=== PATIENT | male | born 1950 | race Caucasian/White ===

== ENCOUNTER 2018-02-18 22:47 | Outpatient (REF) | payer BC, MEDICARE, SELFPAY ==
[2018-02-18 23:20] LABS: ALT 80 U/L (12-78); AST 43 U/L (15-37); Albumin 3.4 g/dL (3.4-5.0); Alkaline Phosphatase 175 U/L (46-116); BUN 9 mg/dL (7-18); Bilirubin, Total 1.4 mg/dL (0.2-1.0); CREATININE 1.02 mg/dL (0.70-1.30); Calcium 8.7 mg/dL (8.5-10.1); Chloride 92 mmol/L (98-107); Glucose 100 mg/dL (70-100); Potassium 4.7 mmol/L (3.5-5.1); Sodium 128 mmol/L (136-145)
== END 2018-02-18 23:07 ==
LOC: NCHCN 22:47
PROVIDERS: Visit Provider Nurse Practitioner Family
DX: E87.1 Hypo-osmolality and hyponatremia (principal); I10 Essential (primary) hypertension; F10.20 Alcohol dependence, uncomplicated; R94.5 Abnormal results of liver function studies
CPT/HCPCS: 80053

== ENCOUNTER 2018-03-05 21:16 | Outpatient (REF) | payer BC, MEDICARE, SELFPAY ==
[2018-03-05 22:13] LABS: ALT 32 U/L (12-78); AST 31 U/L (15-37); Albumin 3.8 g/dL (3.4-5.0); Alkaline Phosphatase 99 U/L (46-116); Anion Gap 7.4 mmol/L (3-11); BUN 9 mg/dL (7-18); Bilirubin, Total 0.8 mg/dL (0.2-1.0); CO2 27.6 mmol/L (21.0-32.0); CREATININE 1.25 mg/dL (0.70-1.30); Calcium 8.8 mg/dL (8.5-10.1); Chloride 96 mmol/L (98-107); Estimated GFR 57.61 (mL/min/1.73m2); Glucose 93 mg/dL (70-100); Potassium 4.6 mmol/L (3.5-5.1); Sodium 131 mmol/L (136-145); Total Protein 7.4 g/dL (6.4-8.2)
== END 2018-03-05 21:36 ==
LOC: NCHCN 21:16
PROVIDERS: Visit Provider Nurse Practitioner Family
DX: I10 Essential (primary) hypertension (principal); F10.20 Alcohol dependence, uncomplicated
CPT/HCPCS: 80053

== ENCOUNTER 2019-01-07 17:20 | Outpatient (REF) | payer BC, MEDICARE, SELFPAY ==
[2019-01-07 21:22] LABS: HCT 37.7 % (40.0-50.0); HGB 13.2 g/dL (13.5-17.5); Mean Corpuscular Hemoglobin 31.1 pg (27.0-33.0); Mean Corpuscular Volume 88.7 fL (80-95); Mean Platelet Volume 10.6 fL (8.0-11.0); Platelet Count 132 x1000/uL (130-400); RBC 4.25 m/cumm (4.50-6.00); RBC Distribution Width 13.4 % (11.8-14.1); White Blood Cell Count 5.71 k/cumm (4.4-10.8)
[2019-01-07 21:36] LABS: INR 1.1 (0.9-1.1); Prothrombin Time 11.5 sec (9.3-11.0)
[2019-01-07 22:06] LABS: Hemoglobin A1C 5.6 % (4.5-6.2)
[2019-01-07 22:24] LABS: ALT 40 U/L (16-63); AST 35 U/L (15-37); Albumin 3.9 g/dL (3.4-5.0); Alkaline Phosphatase 79 U/L (46-116); Anion Gap 8.9 mmol/L (3-11); BUN 9 mg/dL (7-18); Bilirubin, Total 0.6 mg/dL (0.2-1.0); CO2 26.1 mmol/L (21.0-32.0); CREATININE 1.01 mg/dL (0.70-1.30); Calcium 8.5 mg/dL (8.5-10.1); Calculated LDL 68 mg/dL; Chloride 88 mmol/L (98-107); Cholesterol 156 mg/dL (<200); Glucose 99 mg/dL (74-106); HDL Cholesterol 72 mg/dL (40-60); Magnesium 1.9 mg/dL (1.8-2.4); Potassium 4.6 mmol/L (3.5-5.1); Total Protein 7.1 g/dL (6.4-8.2); Triglyceride 80 mg/dL (<150); Vitamin B12 493 pg/mL (193-986)
[2019-01-07 22:56] LABS: Sodium 123 mmol/L (136-145)
== END 2019-01-07 17:40 ==
LOC: NCHCN 17:20
PROVIDERS: Visit Provider Nurse Practitioner Family
DX: R73.9 Hyperglycemia, unspecified (principal); E87.1 Hypo-osmolality and hyponatremia; I10 Essential (primary) hypertension; R94.5 Abnormal results of liver function studies; F10.20 Alcohol dependence, uncomplicated; Z87.19 Personal history of other diseases of the digestive system
CPT/HCPCS: 80053; 80061; 85027; 82607; 83036; 83735; 85610

== ENCOUNTER 2019-01-13 11:15 | Outpatient (REF) | payer BC, MEDICARE, SELFPAY ==
[2019-01-13 21:26] LABS: Anion Gap 6.6 mmol/L (3-11); BUN 10 mg/dL (7-18); CO2 28.4 mmol/L (21.0-32.0); CREATININE 1.04 mg/dL (0.70-1.30); Calcium 8.6 mg/dL (8.5-10.1); Chloride 93 mmol/L (98-107); Glucose 110 mg/dL (74-106); Potassium 4.7 mmol/L (3.5-5.1); Sodium 128 mmol/L (136-145)
[2019-01-13 21:35] LABS: Sodium, Urine 34 mmol/L
[2019-01-14 19:45] LABS: Osmolality, Urine 278 mOsm/kg (150-1,150)
== END 2019-01-13 11:35 ==
LOC: NCHCN 11:15
PROVIDERS: Visit Provider Nurse Practitioner Family
DX: E87.1 Hypo-osmolality and hyponatremia (principal)
CPT/HCPCS: 80048; 83935; 84300

== ENCOUNTER 2019-11-19 14:09 | Outpatient (REF) | payer OTHER, SELFPAY ==
[2019-11-23 15:25] LABS: Patient Race White; SARS-CoV-2 RNA Undetected (Undetected); SARS-CoV-2 Specimen Source Nasal
== END 2019-11-19 14:29 ==
LOC: NCHCN 14:09
PROVIDERS: Visit Provider Nurse Practitioner Family
DX: Z20.828 Contact with and (suspected) exposure to other viral communicable diseases (principal)
CPT/HCPCS: U0003

== ENCOUNTER 2019-11-19 17:19 | Outpatient (REF) | payer OTHER, SELFPAY ==
[2019-11-19 23:18] LABS: HCT 42.1 % (40.0-50.0); HGB 14.8 g/dL (13.5-17.5); MCH 33.6 pg (27.0-33.0); MCHC 35.2 % (32.0-36.0); MCV 95.5 fL (80-95); MPV 11.3 fL (8.0-11.0); Platelet Count 215 10^3/uL (130-400); RBC 4.41 10^6/uL (4.36-5.78); RDW 12.6 % (11.8-14.1); RDW-SD 44.9 fL; WBC 5.53 10^3/uL (4.4-10.8)
[2019-11-19 23:23] LABS: Prothrombin Time 10.5 sec (9.3-11.0)
[2019-11-19 23:27] LABS: ALT 38 U/L (16-63); AST 31 U/L (15-37); Albumin 3.8 g/dL (3.4-5.0); Alkaline Phosphatase 90 U/L (46-116); Anion Gap 8.5 mmol/L (3-11); BUN 11 mg/dL (7-18); Bilirubin, Total 0.6 mg/dL (0.2-1.0); CO2 28.5 mmol/L (21.0-32.0); CREATININE 1.12 mg/dL (0.70-1.30); Calcium 8.7 mg/dL (8.5-10.1); Chloride 95 mmol/L (98-107); Glucose 85 mg/dL (74-106); Potassium 4.1 mmol/L (3.5-5.1); Sodium 132 mmol/L (136-145); Total Protein 7.6 g/dL (6.4-8.2)
[2019-11-19 23:33] LABS: Hemoglobin A1C 5.5 % (<5.7)
== END 2019-11-19 17:39 ==
LOC: NCHCN 17:19
PROVIDERS: Visit Provider Nurse Practitioner Family
DX: R73.9 Hyperglycemia, unspecified (principal); I10 Essential (primary) hypertension; F10.20 Alcohol dependence, uncomplicated; E87.1 Hypo-osmolality and hyponatremia; Z87.898 Personal history of other specified conditions
CPT/HCPCS: 80053; 85027; 83036; 85610

== ENCOUNTER 2020-09-13 15:36 | Outpatient (REF) | payer OTHER, SELFPAY ==
[2020-09-13 20:48] LABS: INR 1.1 (0.9-1.1); Prothrombin Time 10.7 sec (9.3-11.0)
[2020-09-13 20:58] LABS: HCT 39.9 % (40.0-50.0); HGB 13.5 g/dL (13.5-17.5); MCH 30.4 pg (27.0-33.0); MCHC 33.8 % (32.0-36.0); MCV 89.9 fL (80-95); RBC 4.44 10^6/uL (4.36-5.78); RDW 13.8 % (11.8-14.1); RDW-SD 45.6 fL; WBC 6.03 10^3/uL (4.4-10.8)
[2020-09-13 21:14] LABS: ALT 71 U/L (16-63); AST 76 U/L (15-37); Albumin 3.9 g/dL (3.4-5.0); Alkaline Phosphatase 211 U/L (46-116); Anion Gap 8.9 mmol/L (3-11); BUN 7 mg/dL (7-18); Bilirubin, Total 0.6 mg/dL (0.2-1.0); CO2 27.1 mmol/L (21.0-32.0); Calcium 8.5 mg/dL (8.5-10.1); Chloride 90 mmol/L (98-107); Glucose 110 mg/dL (74-106); Potassium 4.4 mmol/L (3.5-5.1); Sodium 126 mmol/L (136-145); Total Protein 7.6 g/dL (6.4-8.2)
== END 2020-09-13 15:37 | disposition home or self-care (01) ==
LOC: NCHCN 15:36
PROVIDERS: Visit Provider Nurse Practitioner Family
DX: I10 Essential (primary) hypertension (principal); F10.20 Alcohol dependence, uncomplicated; F41.9 Anxiety disorder, unspecified; F40.243 Fear of flying; E87.1 Hypo-osmolality and hyponatremia; R94.5 Abnormal results of liver function studies
CPT/HCPCS: 80053; 85027; 85610

== ENCOUNTER 2020-09-27 14:35 | Outpatient (REF) | payer OTHER, SELFPAY ==
[2020-09-27 21:16] LABS: HCT 39.1 % (40.0-50.0); HGB 13.2 g/dL (13.5-17.5); MCH 31.1 pg (27.0-33.0); MCHC 33.8 % (32.0-36.0); MPV 12.3 fL (8.0-11.0); Platelet Count 123 10^3/uL (130-400); RBC 4.25 10^6/uL (4.36-5.78); RDW 14.6 % (11.8-14.1); RDW-SD 49.1 fL; WBC 5.37 10^3/uL (4.4-10.8)
== END 2020-09-27 14:36 | disposition home or self-care (01) ==
LOC: NCHCN 14:35
PROVIDERS: Visit Provider Nurse Practitioner Family
DX: R79.89 Other specified abnormal findings of blood chemistry (principal); Z87.898 Personal history of other specified conditions
CPT/HCPCS: 85027

== ENCOUNTER 2020-10-15 16:05 | Outpatient (REF) | payer OTHER, SELFPAY ==
[2020-10-15 20:57] LABS: ALT 61 U/L (16-63); AST 28 U/L (15-37); Albumin 3.7 g/dL (3.4-5.0); Alkaline Phosphatase 154 U/L (46-116); Bilirubin, Direct 0.1 mg/dL (0.0-0.2); Bilirubin, Total 0.5 mg/dL (0.2-1.0)
== END 2020-10-15 16:06 | disposition home or self-care (01) ==
LOC: NCHCN 16:05
PROVIDERS: Visit Provider Nurse Practitioner Family
DX: Z87.898 Personal history of other specified conditions (principal)
CPT/HCPCS: 80076

== ENCOUNTER 2020-11-11 12:00 | Outpatient (REF) | payer OTHER, SELFPAY ==
[2020-11-11 15:34] LABS: Prothrombin Time 10.4 sec (9.3-11.0)
[2020-11-11 16:01] LABS: HGB 14.2 g/dL (13.5-17.5); MCH 30.7 pg (27.0-33.0); MCV 93.1 fL (80-95); MPV 10.8 fL (8.0-11.0); Platelet Count 186 10^3/uL (130-400); RBC 4.62 10^6/uL (4.36-5.78); RDW 13.8 % (11.8-14.1); RDW-SD 46.8 fL
[2020-11-11 16:39] LABS: Iron 153 ug/dL (65-175); Total Iron Binding Capacity 318 ug/dL (250-450); Transferrin Sat 48 % (20-55)
[2020-11-11 16:47] LABS: ALT 142 U/L (16-63); AST 44 U/L (15-37); Albumin 3.9 g/dL (3.4-5.0); Alkaline Phosphatase 213 U/L (46-116); Anion Gap 6.1 mmol/L (3-11); BUN 9 mg/dL (7-18); Bilirubin, Total 0.6 mg/dL (0.2-1.0); CO2 28.9 mmol/L (21.0-32.0); CREATININE 1.1 mg/dL (0.70-1.30); Chloride 96 mmol/L (98-107); Folate 3.5 ng/mL (8.6-20.0); Glucose 90 mg/dL (74-106); Potassium 3.8 mmol/L (3.5-5.1); Sodium 131 mmol/L (136-145); Total Protein 7.6 g/dL (6.4-8.2); Vitamin B12 823 pg/mL (193-986)
== END 2020-11-11 12:01 | disposition home or self-care (01) ==
LOC: NCHCN 12:00
PROVIDERS: Visit Provider Nurse Practitioner Family
DX: K70.30 Alcoholic cirrhosis of liver without ascites (principal); F10.20 Alcohol dependence, uncomplicated; Z87.898 Personal history of other specified conditions
CPT/HCPCS: 80053; 85027; 82607; 82746; 83540; 83550; 85610

== ENCOUNTER 2021-07-26 15:39 | Outpatient (REF) | payer MEDICARE, SELFPAY ==
[2021-07-26 21:07] LABS: ALT 27 U/L (16-63); AST 23 U/L (15-37); Albumin 3.6 g/dL (3.4-5.0); Alkaline Phosphatase 75 U/L (46-116); Anion Gap 4.1 mmol/L (3-11); BUN 10 mg/dL (7-18); Bilirubin, Total 0.7 mg/dL (0.2-1.0); CO2 27.9 mmol/L (21.0-32.0); CREATININE 1.2 mg/dL (0.70-1.30); Calcium 8.5 mg/dL (8.5-10.1); Chloride 94 mmol/L (98-107); Estimated GFR 59.68 (mL/min/1.73m2); Glucose 100 mg/dL (74-106); INR 1.1 (0.9-1.1); Potassium 4.7 mmol/L (3.5-5.1); Prothrombin Time 10.7 sec (9.3-11.0); Sodium 126 mmol/L (136-145); Total Protein 7.1 g/dL (6.4-8.2)
[2021-07-26 21:11] LABS: HGB 13.4 g/dL (13.5-17.5); MCH 29.8 pg (27.0-33.0); MCHC 34.4 % (32.0-36.0); MCV 87 fL (80-95); RBC 4.49 10^6/uL (4.36-5.78); RDW 14.7 % (11.8-14.1); RDW-SD 47.1 fL
[2021-07-26 21:39] LABS: Platelet Count 131 10^3/uL (130-400)
== END 2021-07-26 15:40 | disposition home or self-care (01) ==
LOC: NCHCN 15:39
PROVIDERS: Visit Provider Nurse Practitioner Family
DX: K20.90 Esophagitis, unspecified without bleeding (principal); K70.2 Alcoholic fibrosis and sclerosis of liver; R94.5 Abnormal results of liver function studies
CPT/HCPCS: 80053; 85027; 85610

== ENCOUNTER 2021-08-24 16:37 | Outpatient (REF) | payer MEDICARE, SELFPAY ==
[2021-08-24 15:57] LABS: Anion Gap 6.6 mmol/L (3-11); BUN 10 mg/dL (7-18); CO2 25.4 mmol/L (21.0-32.0); CREATININE 1.1 mg/dL (0.70-1.30); Calcium 8.5 mg/dL (8.5-10.1); Chloride 89 mmol/L (98-107); Glucose 95 mg/dL (74-106); Potassium 4.8 mmol/L (3.5-5.1); TSH 1.93 uIU/mL (0.36-3.74)
[2021-08-24 16:11] LABS: Sodium 121 mmol/L (136-145)
== END 2021-08-24 16:38 | disposition home or self-care (01) ==
LOC: NCHCN 16:37
PROVIDERS: Visit Provider Nurse Practitioner Family
DX: I10 Essential (primary) hypertension (principal); K70.2 Alcoholic fibrosis and sclerosis of liver
CPT/HCPCS: 80048; 82533; 84443

== ENCOUNTER 2022-02-27 21:10 | Outpatient (REF) | payer MEDICARE, SELFPAY ==
[2022-02-27 21:29] LABS: BUN 11 mg/dL (7-18); CREATININE 1.2 mg/dL (0.70-1.30); Calcium 8.9 mg/dL (8.5-10.1); Chloride 95 mmol/L (98-107); Estimated GFR 64.65 (mL/min/1.73m2); Glucose 109 mg/dL (74-106); Potassium 4.7 mmol/L (3.5-5.1); Sodium 129 mmol/L (136-145)
[2022-02-28 20:00] LABS: PSA, Screening 0.5 ng/mL (<=6.5)
== END 2022-02-27 21:11 | disposition home or self-care (01) ==
LOC: NCHCN 21:10
PROVIDERS: Visit Provider Nurse Practitioner Family
DX: N40.0 Benign prostatic hyperplasia without lower urinary tract symptoms (principal); I10 Essential (primary) hypertension; E87.1 Hypo-osmolality and hyponatremia; F10.20 Alcohol dependence, uncomplicated; Z12.5 Encounter for screening for malignant neoplasm of prostate
CPT/HCPCS: 80048; 84153

== ENCOUNTER 2022-07-28 13:13 | Outpatient (REF) | payer MEDICARE, SELFPAY ==
[2022-07-28 21:09] LABS: Abs Immature Grans 0.03 10^3/uL (0.0-0.06); Absolute Basophil Count 0.02 10^3/uL (0.0-0.2); Absolute Eosinophil Count 0.12 10^3/uL (0.0-0.7); Absolute Lymphocyte Count 0.78 10^3/uL (1.2-3.4); Absolute Monocyte Count 0.75 10^3/uL (0.1-0.8); Absolute Neutrophil Count 4.08 10^3/uL (1.2-6.7); Basophils % 0.3; Eosinophils % 2.1; HCT 34.7 % (40.0-50.0); Immature Grans % 0.5; Lymphocytes % 13.5; MCH 30.3 pg (27.0-33.0); MCHC 34.6 % (32.0-36.0); MCV 88 fL (80-95); MPV 12.2 fL (8.0-11.0); Neutrophils % 70.6; RBC 3.96 10^6/uL (4.36-5.78); RDW 14.9 % (11.8-14.1); WBC 5.78 10^3/uL (4.4-10.8)
[2022-07-28 21:15] LABS: Bilirubin Negative (Negative); Blood Negative (Negative); Clarity Clear (Clear); Glucose Negative (Negative); Ketones Negative (Negative); Leukocyte Esterase Negative (Negative); Nitrite Negative (Negative); Specific Gravity 1.015 (1.005-1.025); Urobilinogen 0.2 mg/dL (Up to 0.2)
[2022-07-28 21:24] LABS: RBC 0-2 HPF (0-2); WBC 0-2 HPF (0-5)
[2022-07-28 21:25] LABS: Bacteria Negative HPF (Negative); C & S Indicated? No; Casts Negative LPF (Negative); Crystals Negative HPF (Negative); Epithelial Cells Rare HPF (Negative); Mucus Trace (Negative)
[2022-07-28 21:26] LABS: ALT 66 U/L (16-63); AST 50 U/L (15-37); Albumin 3.3 g/dL (3.4-5.0); Alkaline Phosphatase 142 U/L (46-116); Anion Gap 6.3 mmol/L (3-11); BUN 9 mg/dL (7-18); Bilirubin, Total 1.2 mg/dL (0.2-1.0); CO2 26.7 mmol/L (21.0-32.0); CREATININE 1.1 mg/dL (0.70-1.30); Calcium 8.6 mg/dL (8.5-10.1); Chloride 92 mmol/L (98-107); Estimated GFR 71.32 (mL/min/1.73m2); Glucose 96 mg/dL (74-106); Potassium 3.9 mmol/L (3.5-5.1); Sodium 125 mmol/L (136-145); Total Protein 7.4 g/dL (6.4-8.2)
[2022-07-28 21:27] LABS: Lipase > 375 U/L (16-77)
[2022-07-28 21:43] LABS: Platelet Count 91 10^3/uL (130-400)
== END 2022-07-28 13:14 | disposition home or self-care (01) ==
LOC: NCHCN 13:13
PROVIDERS: Visit Provider Family Medicine
DX: E87.1 Hypo-osmolality and hyponatremia (principal); K70.2 Alcoholic fibrosis and sclerosis of liver; R10.9 Unspecified abdominal pain
CPT/HCPCS: 80053; 83690; 81003; 81015; 85025

== ENCOUNTER 2022-08-28 17:11 | Outpatient (REF) | payer MEDICARE, SELFPAY ==
[2022-08-28 21:31] LABS: HCT 38.6 % (40.0-50.0); HGB 13.3 g/dL (13.5-17.5); MCH 29.9 pg (27.0-33.0); MCHC 34.5 % (32.0-36.0); MCV 87 fL (80-95); RBC 4.45 10^6/uL (4.36-5.78); RDW 13.6 % (11.8-14.1); RDW-SD 43.3 fL; WBC 4.63 10^3/uL (4.4-10.8)
[2022-08-28 21:42] LABS: Prothrombin Time 10.5 sec (9.3-11.0)
[2022-08-28 21:59] LABS: Platelet Count 89 10^3/uL (130-400)
[2022-08-28 22:05] LABS: ALT 31 U/L (16-63); AST 30 U/L (15-37); Albumin 3.6 g/dL (3.4-5.0); Alkaline Phosphatase 99 U/L (46-116); BUN 13 mg/dL (7-18); Bilirubin, Total 0.8 mg/dL (0.2-1.0); CO2 27.4 mmol/L (21.0-32.0); CREATININE 1.2 mg/dL (0.70-1.30); Calcium 8.6 mg/dL (8.5-10.1); Chloride 92 mmol/L (98-107); Estimated GFR 64.25 (mL/min/1.73m2); Glucose 82 mg/dL (74-106); Potassium 4.6 mmol/L (3.5-5.1); Total Protein 7.3 g/dL (6.4-8.2)
[2022-08-28 22:09] LABS: Anion Gap 9.6 mmol/L (3-11); Sodium 129 mmol/L (136-145)
== END 2022-08-28 17:12 | disposition home or self-care (01) ==
LOC: NCHCN 17:11
PROVIDERS: Visit Provider Nurse Practitioner Family
DX: K70.2 Alcoholic fibrosis and sclerosis of liver (principal)
CPT/HCPCS: 80053; 85027; 85610

== ENCOUNTER 2023-01-15 13:12 | Outpatient (REF) | payer MEDICARE, SELFPAY ==
[2023-01-15 14:36] LABS: Abs Immature Grans 0.02 10^3/uL (0.0-0.06); Absolute Basophil Count 0.03 10^3/uL (0.0-0.2); Absolute Eosinophil Count 0.23 10^3/uL (0.0-0.7); Absolute Lymphocyte Count 0.67 10^3/uL (1.2-3.4); Absolute Monocyte Count 0.81 10^3/uL (0.1-0.8); Absolute Neutrophil Count 3.12 10^3/uL (1.2-6.7); Basophils % 0.6; Eosinophils % 4.7; HCT 35.3 % (40.0-50.0); HGB 12.3 g/dL (13.5-17.5); Immature Grans % 0.4; Lymphocytes % 13.7; MCH 29.6 pg (27.0-33.0); MCHC 34.8 % (32.0-36.0); MCV 85 fL (80-95); Monocytes % 16.6; RBC 4.16 10^6/uL (4.36-5.78); RDW 17.3 % (11.8-14.1); RDW-SD 53.7 fL; WBC 4.88 10^3/uL (4.4-10.8)
[2023-01-15 14:47] LABS: Diff Comment PLT Morph Reviewed; RBC Morphology Normal
[2023-01-15 14:48] LABS: ALT 212 U/L (16-63); AST 137 U/L (15-37); Alkaline Phosphatase 270 U/L (46-116); Anion Gap 6.6 mmol/L (3-11); BUN 12 mg/dL (7-18); Bilirubin, Total 2.9 mg/dL (0.2-1.0); CO2 26.4 mmol/L (21.0-32.0); Calcium 8.7 mg/dL (8.5-10.1); Calculated LDL 88 mg/dL (<100); Chloride 94 mmol/L (98-107); Cholesterol 169 mg/dL (<200); Estimated GFR 79.97 (mL/min/1.73m2); Glucose 100 mg/dL (74-106); HDL Cholesterol 70 mg/dL (40-60); Lipase 57 U/L (16-77); Sodium 127 mmol/L (136-145); Total Protein 6.8 g/dL (6.4-8.2); Triglyceride 56 mg/dL (<150)
== END 2023-01-15 13:13 | disposition home or self-care (01) ==
LOC: NCHCN 13:12
PROVIDERS: PCP Nurse Practitioner Family; Visit Provider Nurse Practitioner Family
DX: K70.2 Alcoholic fibrosis and sclerosis of liver (principal); R10.9 Unspecified abdominal pain; I10 Essential (primary) hypertension
CPT/HCPCS: 80053; 80061; 83690; 85025

== ENCOUNTER 2023-07-23 13:47 | Outpatient (REF) | payer MEDICARE, SELFPAY ==
[2023-07-23 17:01] LABS: Abs Immature Grans 0.01 10^3/uL (0.0-0.06); Absolute Basophil Count 0.06 10^3/uL (0.0-0.2); Absolute Eosinophil Count 0.44 10^3/uL (0.0-0.7); Absolute Lymphocyte Count 1.21 10^3/uL (1.2-3.4); Absolute Monocyte Count 0.71 10^3/uL (0.1-0.8); Basophils % 1.3 %; Eosinophils % 9.7 %; HGB 11.9 g/dL (13.5-17.5); Immature Grans % 0.2 %; Lymphocytes % 26.7 %; MCH 28.5 pg (27.0-33.0); MCHC 33.1 % (32.0-36.0); MCV 86 fL (80-95); Monocytes % 15.7 %; Neutrophils % 46.4 %; RBC 4.18 10^6/uL (4.36-5.78); RDW 14.6 % (11.8-14.1); RDW-SD 46.8 fL; WBC 4.53 10^3/uL (4.4-10.8)
[2023-07-23 17:07] LABS: Iron 72 ug/dL (65-175); Total Iron Binding Capacity 363 ug/dL (250-450); Transferrin Sat 20 % (20-55)
[2023-07-23 17:35] LABS: ALT 28 U/L (16-63); AST 33 U/L (15-37); Albumin 3.5 g/dL (3.4-5.0); Alkaline Phosphatase 77 U/L (46-116); Anion Gap 7.1 mmol/L (3-11); BUN 13 mg/dL (7-18); Bilirubin, Total 0.8 mg/dL (0.2-1.0); CO2 27.9 mmol/L (21.0-32.0); CREATININE 1.2 mg/dL (0.70-1.30); Calcium 8.5 mg/dL (8.5-10.1); Chloride 96 mmol/L (98-107); Estimated GFR 63.85 (mL/min/1.73m2); Ferritin 60 ng/mL (26-388); Glucose 93 mg/dL (74-106); Potassium 4.2 mmol/L (3.5-5.1); Sodium 131 mmol/L (136-145); Total Protein 7.1 g/dL (6.4-8.2); Vitamin B12 1935 pg/mL (193-986)
[2023-07-23 17:53] LABS: NT-proBNP 844 pg/mL (<300)
== END 2023-07-23 13:48 | disposition home or self-care (01) ==
LOC: NCHCN 13:47
PROVIDERS: PCP Nurse Practitioner Family; Visit Provider Internal Medicine
DX: D64.9 Anemia, unspecified (principal); R06.09 Other forms of dyspnea; K70.2 Alcoholic fibrosis and sclerosis of liver; R68.89 Other general symptoms and signs
CPT/HCPCS: 80053; 82607; 82728; 83540; 83550; 83880; 85025

== ENCOUNTER 2024-01-03 12:28 | Outpatient (REF) | payer MEDICARE, SELFPAY ==
[2024-01-03 21:26] LABS: HCT 38.3 % (40.0-50.0); MCH 30.7 pg (27.0-33.0); MCHC 33.9 % (32.0-36.0); MCV 90 fL (80-95); RBC 4.24 10^6/uL (4.36-5.78); RDW 14.1 % (11.8-14.1); RDW-SD 46.5 fL; WBC 4.67 10^3/uL (4.4-10.8)
[2024-01-03 21:53] LABS: ALT 36 U/L (16-63); AST 39 U/L (15-37); Albumin 3.8 g/dL (3.4-5.0); Alkaline Phosphatase 81 U/L (46-116); Anion Gap 6.6 mmol/L (3-11); BUN 11 mg/dL (7-18); Bilirubin, Total 0.89 mg/dL (0.2-1.0); CO2 27.4 mmol/L (21.0-32.0); CREATININE 1.1 mg/dL (0.70-1.30); Calcium 8.6 mg/dL (8.5-10.1); Chloride 93 mmol/L (98-107); Estimated GFR 70.88 (mL/min/1.73m2); Glucose 90 mg/dL (74-106); Potassium 4.7 mmol/L (3.5-5.1); Sodium 127 mmol/L (136-145); Total Protein 7.4 g/dL (6.4-8.2)
[2024-01-03 23:06] LABS: Vitamin B12 530 pg/mL (193-986)
[2024-01-04 18:09] LABS: PSA, Diagnostic 0.6 ng/mL (<=6.5)
== END 2024-01-03 12:29 | disposition home or self-care (01) ==
LOC: NCHCN 12:28
PROVIDERS: PCP Nurse Practitioner Family; Visit Provider Nurse Practitioner Family
DX: D64.9 Anemia, unspecified (principal); N40.1 Benign prostatic hyperplasia with lower urinary tract symptoms
CPT/HCPCS: 80053; 85027; 82607; 84153

== ENCOUNTER 2024-01-14 18:43 | Outpatient (REF) | payer MEDICARE, SELFPAY ==
[2024-01-14 22:11] LABS: Iron 178 ug/dL (65-175); Total Iron Binding Capacity 352 ug/dL (250-450); Transferrin Sat 51 % (20-55)
[2024-01-14 22:26] LABS: Anion Gap 5.9 mmol/L (3-11); BUN 14 mg/dL (7-18); CO2 27.1 mmol/L (21.0-32.0); CREATININE 1.4 mg/dL (0.70-1.30); Calcium 8.6 mg/dL (8.5-10.1); Chloride 90 mmol/L (98-107); Estimated GFR 53.07 (mL/min/1.73m2); Ferritin 70 ng/mL (26-388); Folate 3.7 ng/mL (8.6-20.0); Glucose 90 mg/dL (74-106)
[2024-01-14 22:38] LABS: Sodium 123 mmol/L (136-145)
== END 2024-01-14 18:44 | disposition home or self-care (01) ==
LOC: NCHCN 18:43
PROVIDERS: PCP Nurse Practitioner Family; Visit Provider Nurse Practitioner Family
DX: D64.9 Anemia, unspecified (principal); I10 Essential (primary) hypertension
CPT/HCPCS: 80048; 82728; 82746; 83540; 83550

== ENCOUNTER 2024-02-21 09:40 | Outpatient (REF) | payer MEDICARE, SELFPAY ==
[2024-02-21 15:59] LABS: Anion Gap 3.8 mmol/L (3-11); BUN 13 mg/dL (7-18); CO2 30.2 mmol/L (21.0-32.0); CREATININE 1.2 mg/dL (0.70-1.30); Calcium 8.7 mg/dL (8.5-10.1); Chloride 99 mmol/L (98-107); Estimated GFR 63.85 (mL/min/1.73m2); Glucose 103 mg/dL (74-106); Potassium 4.2 mmol/L (3.5-5.1); Sodium 133 mmol/L (136-145)
== END 2024-02-21 09:41 | disposition home or self-care (01) ==
LOC: NCHCN 09:40
PROVIDERS: PCP Nurse Practitioner Family; Visit Provider Nurse Practitioner Family
DX: E87.1 Hypo-osmolality and hyponatremia (principal)
CPT/HCPCS: 80048

== ENCOUNTER 2024-02-28 13:14 | Outpatient (REF) | payer MEDICARE, SELFPAY ==
[2024-02-28 14:22] LABS: Anion Gap 4.9 mmol/L (3-11); BUN 11 mg/dL (7-18); CO2 29.1 mmol/L (21.0-32.0); Calcium 8.9 mg/dL (8.5-10.1); Chloride 95 mmol/L (98-107); Estimated GFR 79.47 (mL/min/1.73m2); Glucose 92 mg/dL (74-106); Sodium 129 mmol/L (136-145)
== END 2024-02-28 13:15 | disposition home or self-care (01) ==
LOC: NCHCN 13:14
PROVIDERS: PCP Nurse Practitioner Family; Visit Provider Nurse Practitioner Family
DX: I10 Essential (primary) hypertension (principal)
CPT/HCPCS: 80048

== ENCOUNTER 2024-03-19 13:14 | Outpatient (REF) | payer MEDICARE, SELFPAY ==
[2024-03-19 14:07] LABS: HCT 38.1 % (40.0-50.0); HGB 12.7 g/dL (13.5-17.5); MCHC 33.3 % (32.0-36.0); MCV 96 fL (80-95); RBC 3.97 10^6/uL (4.36-5.78); RDW 13.9 % (11.8-14.1); RDW-SD 49.3 fL; WBC 4.67 10^3/uL (4.4-10.8)
[2024-03-19 14:26] LABS: Anion Gap 4.8 mmol/L (3-11); BUN 16 mg/dL (7-18); CO2 30.2 mmol/L (21.0-32.0); CREATININE 1.2 mg/dL (0.70-1.30); Calcium 8.7 mg/dL (8.5-10.1); Chloride 98 mmol/L (98-107); Estimated GFR 63.85 (mL/min/1.73m2); Glucose 99 mg/dL (74-106); Potassium 4.2 mmol/L (3.5-5.1); Sodium 133 mmol/L (136-145)
[2024-03-19 14:27] LABS: Folate > 20.0 ng/mL (8.6-20.0)
== END 2024-03-19 13:15 | disposition home or self-care (01) ==
LOC: NCHCN 13:14
PROVIDERS: PCP Nurse Practitioner Family; Visit Provider Nurse Practitioner Family
DX: D64.9 Anemia, unspecified (principal)
CPT/HCPCS: 80048; 85027; 82746

== ENCOUNTER 2024-12-02 14:58 | Outpatient (REF) | payer MEDICARE, SELFPAY ==
[2024-12-02 16:12] LABS: HCT 38.1 % (40.0-50.0); HGB 13.1 g/dL (13.5-17.5); MCH 30.0 pg (27.0-33.0); MCHC 34.4 % (32.0-36.0); MCV 87 fL (80-95); RBC 4.37 10^6/uL (4.36-5.78); RDW 14.2 % (11.8-14.1); RDW-SD 46.0 fL; WBC 4.25 10^3/uL (4.4-10.8)
[2024-12-02 16:25] LABS: INR 1.1 (0.9-1.1); Prothrombin Time 10.7 sec (9.1-11.1)
[2024-12-02 17:46] LABS: ALT 37 U/L (16-63); AST 27 U/L (15-37); Albumin 3.6 g/dL (3.4-5.0); Alkaline Phosphatase 95 U/L (46-116); Anion Gap 6.9 mmol/L (3-11); BUN 10 mg/dL (7-18); Bilirubin, Total 0.6 mg/dL (0.2-1.0); CO2 29.1 mmol/L (21.0-32.0); Calcium 8.4 mg/dL (8.5-10.1); Chloride 92 mmol/L (98-107); Estimated GFR 70.44 (mL/min/1.73m2); Folate 4.9 ng/mL (8.6-20.0); Glucose 93 mg/dL (74-106); Potassium 4.2 mmol/L (3.5-5.1); Sodium 128 mmol/L (136-145); Total Protein 6.9 g/dL (6.4-8.2)
== END 2024-12-02 14:59 | disposition home or self-care (01) ==
LOC: NCHCN 14:58
PROVIDERS: PCP Nurse Practitioner Family; Visit Provider Nurse Practitioner Family
DX: Z86.2 Personal history of diseases of the blood and blood-forming organs and certain disorders involving the immune mechanism (principal); E53.8 Deficiency of other specified B group vitamins; I10 Essential (primary) hypertension; K70.2 Alcoholic fibrosis and sclerosis of liver
CPT/HCPCS: 80053; 85027; 82746; 85610